=== PATIENT | male | born 1945 | race Caucasian/White ===

== ENCOUNTER → 2020-07-26 18:20 | Outpatient (ROUT) | payer MEDICARE, SELFPAY ==
[2020-07-26 19:14] LABS: Add Manual Diff / Slide Review NO; Basophils Absolute Auto 100 /uL (0-100); Basophils Percent Auto 0.7 % (0-2); Eosinophils Absolute Auto 300 /uL (0-450); Eosinophils Percent Auto 3.4 % (2-4); Hematocrit 49.8 % (41-53); Hemoglobin 16.2 g/dL (13.5-17.5); Lymphocytes Absolute Auto 1900 /uL (1100-4500); Lymphocytes Percent Auto 23.6 % (25-40); Mean Corpuscular HGB Conc 32.6 % (30-36); Mean Corpuscular Volume 95.2 fL (80-100); Monocytes Absolute Auto 900 /uL (0-900); Monocytes Percent Auto 10.9 % (3-14); Neutrophils Absolute Auto 4800 /uL (1500-7000); Neutrophils Percent Auto 61.4 % (50-75); Platelet Count 314 X10^3/uL (150-400); Red Blood Cell Count 5.23 X10^6/uL (4.5-5.9); Red Cell Distribution Width 14.4 % (11.6-14.8); White Blood Cell Count 7.9 X10^3/uL (4.5-11.0)
[2020-07-26 19:16] LABS: HEMOLYSIS < 15 (0-50)
[2020-07-26 19:20] LABS: HEMOLYSIS < 15 (0-50); Iron 153 ug/dL (49-181)
[2020-07-26 19:24] LABS: Alanine Aminotransferase 24 IU/L (<50); Albumin 4.1 g/dL (3.5-5.0); Albumin Globulin Ratio 1.3 (1.0-2.8); Alkaline Phosphatase 62 U/L (38-126); Aspartate Aminotransferase 41 IU/L (17-59); BUN Creatinine Ratio 18.8 (6-22); Bilirubin Total 0.6 mg/dL (0.2-1.3); Blood Urea Nitrogen 12 mg/dL (9-20); Calcium 9.8 mg/dL (8.4-10.2); Carbon Dioxide 32 mmol/L (22-32); Chloride 100 mmol/L (98-107); Cholesterol 157 mg/dL (140-199); Estimated Glomerular Filt Rate > 60.0 mL/min (>60); Globulin 3.1 g/dL (1.7-4.1); Glucose 103 mg/dL (80-110); HDL Cholesterol 75 mg/dL (40-60); LDL Cholesterol Calculated 66 mg/dL (<100); Potassium 4.3 mmol/L (3.4-5.1); Sodium 135 mmol/L (137-145); Total Protein 7.2 g/dL (6.3-8.2); Triglycerides 80 mg/dL (35-150); Uric Acid 4.2 mg/dL (3.5-8.5)
[2020-07-26 19:31] LABS: Percent Iron Saturation 39 % (20-50); Total Iron Binding Capacity 388 ug/dL (261-462); Transferrin 296 mg/dL (206-381)
[2020-07-26 19:57] LABS: Ferritin 29 ng/mL (18-464)
[2020-07-26 20:48] LABS: Folate > 20.0 ng/mL (2.76-20.0); Vitamin B12 > 1000 pg/mL (239-931)
== END ==
PROVIDERS: Visit Provider Internal Medicine
DX: I10 Essential (primary) hypertension (principal); E78.5 Hyperlipidemia, unspecified; M1A.9XX0 Chronic gout, unspecified, without tophus (tophi); Z98.84 Bariatric surgery status
CPT/HCPCS: 80053; 80061; 82607; 82728; 82746; 83540; 83550; 84550; 85025

== ENCOUNTER → 2022-07-18 11:51 | Outpatient (CLI) | payer OTHER, SELFPAY ==
--- NOTE | 2022-07-18 11:56 | DI.RAD.S_ITS ---
PROCEDURE: XR LUMBAR SPINE MIN 4V INDICATIONS: BACK PAIN TECHNIQUE: 5 views of the lumbar spine were acquired, including bilateral oblique views. COMPARISON: None. FINDINGS: Bones: Bilateral pars defects are associated with grade 3 anterior spondylolisthesis. Generalized decreased osseous mineralization present. Grade 1 retrolisthesis at L2-3 noted. Wedge-shaped compression fracture at L1 noted with 40% anterior height loss. Disc space narrowing present at L2-3 L5-S1. Sclerotic facet joints present throughout. Incidental note is made of right hip prosthesis in good position. Soft tissues: Atherosclerotic calcification in the abdominal aorta noted without evidence of aneurysm. IMPRESSION: Grade 3 isthmic spondylolisthesis at L5-S1. Multilevel degenerative disc disease and arthropathy Osteopenic L1 compression fracture, uncertain age. Approved by: Saman Reed M.D. on 07/18/2022 at 16:22
== END ==
PROVIDERS: PCP Internal Medicine; Referring Provider Physical Medicine & Rehabilitation; Visit Provider Physical Medicine & Rehabilitation
DX: M43.17 Spondylolisthesis, lumbosacral region (principal); M51.36 Other intervertebral disc degeneration, lumbar region; M47.816 Spondylosis without myelopathy or radiculopathy, lumbar region; S32.010S Wedge compression fracture of first lumbar vertebra, sequela; M54.9 Dorsalgia, unspecified; I70.0 Atherosclerosis of aorta; Z98.890 Other specified postprocedural states
CPT/HCPCS: 72110; 99214

== ENCOUNTER → 2022-08-26 12:48 | Outpatient (CLI) | payer OTHER, SELFPAY ==
--- NOTE | 2022-08-26 13:07 | DI.MRI.S_ITS ---
PROCEDURE: MR LUMBAR SPINE WO CON INDICATIONS: lumbar stenosis TECHNIQUE: Noncontrast sagittal T1 spin echo and T2 fast echo, sagittal STIR, and T2 fast spin echo through the lumbar spine. In cases with scoliosis, additional coronal T2 fast spin echo may be performed. COMPARISON: None. FINDINGS: Image quality: Excellent. Alignment and Curvature: Grade 1 retrolisthesis L3-4. Grade 3 anterior listhesis present at L4 L5-S1 associated with distracted pars defects Bone Marrow: Marrow is of normal overall signal. No acute vertebral body compression fractures. Chronic degenerative endplate changes noted at L3-4. Chronic compression fractures present at L1, L4 Spinal Cord: Conus medullaris terminates at the L1 level. Visualized cord demonstrates normal signal and size. Paraspinous Soft Tissues: Large right renal cyst. No hydronephrosis T12-L1: Disc space narrowing and retropulsed L1 fracture fragment results in mild central stenosis. No foraminal stenosis L1-L2: Disc height is preserved. No central stenosis. No foraminal stenosis L2-L3: Disc space narrowing with posterior disc osteophyte complex results in moderate central stenosis. Moderate left and severe right foraminal stenosis L3-L4: Disc space is preserved. Mild central stenosis results from disc bulge. Mild bilateral foraminal stenosis L4-L5: Disc space is preserved. Circumferen and disc bulge results in moderate central stenosis. Hypertrophic facet joints results in severe bilateral foraminal stenosis L5-S1: Normal appearance. IMPRESSION: Multilevel degenerative disc disease and arthropathy results in varying degrees of central and foraminal stenosis including moderate central stenosis L2-3 and severe foraminal stenosis L2-3, L4-5, L5-S1 Grade 3 anterior isthmic spondylolisthesis L5-S1 Old compression fractures at L1 and L4 Approved by: Saman Reed M.D. on 08/26/2022 at 16:14
== END ==
PROVIDERS: PCP Internal Medicine; Referring Provider Physical Medicine & Rehabilitation; Visit Provider Physical Medicine & Rehabilitation
DX: M48.062 Spinal stenosis, lumbar region with neurogenic claudication (principal); M43.17 Spondylolisthesis, lumbosacral region; M51.36 Other intervertebral disc degeneration, lumbar region; M47.816 Spondylosis without myelopathy or radiculopathy, lumbar region; M48.56XS Collapsed vertebra, not elsewhere classified, lumbar region, sequela of fracture
CPT/HCPCS: 72148

== ENCOUNTER → 2022-11-18 12:27 | Outpatient (CLI) | payer OTHER, SELFPAY ==
--- NOTE | 2022-11-18 12:30 | DI.CT.S_ITS ---
PROCEDURE: CT LUMBAR SPINE WO CON INDICATIONS: Spinal stenosis, lumbar region TECHNIQUE: Noncontrast 3 mm thick sections acquired from the T12 level to the sacrum. Sagittal and coronal reformats were constructed. For radiation dose reduction, the following was used: automated exposure control. COMPARISON: None. FINDINGS: Image quality: Excellent. Bones: There is normal bony alignment. No acute vertebral body compression fractures. Convexity of the inferior endplate of L1 is seen. No suspicious lytic or blastic bony lesions. No pars defects. T12-L1: No disc bulge. Calcification of the central disc. No foraminal or central canal stenosis. L1-L2: Diffuse disc bulge. Moderate foraminal stenosis bilaterally. The central canal has moderate stenosis. L2-L3: Severe degenerative disc disease with intradiscal gas and severe disc space narrowing. Bilateral facet hypertrophy. Diffuse disc bulge and facet hypertrophy. Severe central canal stenosis. L3-L4: Diffuse disc bulge. Mild bilateral foraminal stenosis. Bilateral facet hypertrophy. Mild central canal stenosis. L4-L5: Diffuse disc bulge. Bilateral facet hypertrophy. Severe right and moderate left foraminal stenosis. Ligamentum flavum hypertrophy. Mild central canal stenosis. L5-S1: Bilateral pars defects with grade 2 anterolisthesis measuring 1.3 cm. Severe bilateral foraminal stenosis. Mild central canal stenosis. Soft tissues: No retroperitoneal masses or hematomas. The aorta has severe atherosclerotic calcifications. The right kidney has a large simple cyst. IMPRESSION: Multilevel severe lumbar spondylosis causing foraminal and central canal stenosis as detailed above. Dictated by: Ej Hall M.D. on 11/18/2022 at 15:50 Approved by: Ej Hall M.D. on 11/18/2022 at 16:03
== END ==
PROVIDERS: PCP Internal Medicine; Referring Provider Orthopaedic Surgery Orthopaedic Surgery of the Spine; Visit Provider Orthopaedic Surgery Orthopaedic Surgery of the Spine
DX: M48.062 Spinal stenosis, lumbar region with neurogenic claudication (principal); M48.07 Spinal stenosis, lumbosacral region; M47.816 Spondylosis without myelopathy or radiculopathy, lumbar region; N28.1 Cyst of kidney, acquired
CPT/HCPCS: 72131

== ENCOUNTER → 2022-11-29 11:45 | Outpatient (CLI) | payer OTHER, SELFPAY ==
[2022-11-29 12:38] LABS: Basophils Absolute Auto 0 /uL (0-100); Basophils Percent Auto 0.5 % (0-2); Eosinophils Absolute Auto 100 /uL (0-450); Eosinophils Percent Auto 1.4 % (2-4); Hematocrit 38.7 % (41-53); Hemoglobin 12.6 g/dL (13.5-17.5); Lymphocytes Absolute Auto 3700 /uL (1100-4500); Lymphocytes Percent Auto 41.4 % (25-40); Mean Corpuscular HGB Conc 32.5 % (30-36); Mean Corpuscular Hemoglobin 26.9 PG (26-34); Mean Corpuscular Volume 82.7 fL (80-100); Monocytes Absolute Auto 900 /uL (0-900); Monocytes Percent Auto 10.4 % (3-14); Neutrophils Absolute Auto 4200 /uL (1500-7000); Neutrophils Percent Auto 46.3 % (50-75); Platelet Count 540 X10^3/uL (150-400); Red Blood Cell Count 4.68 X10^6/uL (4.5-5.9); Red Cell Distribution Width 26.9 % (11.6-14.8)
[2022-11-29 12:40] LABS: Add Manual Diff / Slide Review SLIDE REVIEW
[2022-11-29 13:02] LABS: BUN Creatinine Ratio 18.8 (6-22); Blood Urea Nitrogen 15 mg/dL (9-20); Calcium 8.7 mg/dL (8.4-10.2); Carbon Dioxide 32 mmol/L (22-32); Chloride 96 mmol/L (98-107); Estimated Glomerular Filt Rate > 60 mL/min (>60); Glucose 91 mg/dL (80-110); HEMOLYSIS < 15 (0-50); Potassium 4.2 mmol/L (3.4-5.1); Sodium 133 mmol/L (137-145)
[2022-11-29 13:04] LABS: Acanthocytes 1+; Anisocytosis 1+; Poikilocytosis 1+; Target Cells 1+
[2022-11-30 02:32] LABS: Labcorp Hemoglobin (Hb) A1c 5.4 % (4.8-5.6)
== END ==
PROVIDERS: PCP Internal Medicine; Referring Provider Orthopaedic Surgery Orthopaedic Surgery of the Spine; Visit Provider Orthopaedic Surgery Orthopaedic Surgery of the Spine
DX: Z01.818 Encounter for other preprocedural examination (principal); R73.9 Hyperglycemia, unspecified; Z01.812 Encounter for preprocedural laboratory examination
CPT/HCPCS: 36415; 80048; 83036; 85025; 93005

== ENCOUNTER 2022-12-25 12:28 | Inpatient (IN) | payer OTHER, SELFPAY ==
[2022-12-25] VITALS (13 sets, daily range): BP systolic 91–141; BP diastolic 51–76; PULSE 75–106; RESP 16–18; TEMP 36.2–37.1; O2SAT 97–99; BMI 20.9
[2022-12-25 13:15] LABS: INR 1.1 (0.9-1.3); Prothrombin Time 12.4 SECONDS (10.1-12.7)
[2022-12-25 13:18] LABS: Add Manual Diff / Slide Review NO; Basophils Absolute Auto 0 /uL (0-100); Eosinophils Absolute Auto 0 /uL (0-450); Eosinophils Percent Auto 0.1 % (2-4); Hematocrit 22.8 % (41-53); Hemoglobin 7.6 g/dL (13.5-17.5); Lymphocytes Absolute Auto 1400 /uL (1100-4500); Lymphocytes Percent Auto 10.4 % (25-40); Mean Corpuscular HGB Conc 33.2 % (30-36); Mean Corpuscular Hemoglobin 28.9 PG (26-34); Mean Corpuscular Volume 86.9 fL (80-100); Monocytes Absolute Auto 800 /uL (0-900); Monocytes Percent Auto 6.2 % (3-14); Neutrophils Absolute Auto 11200 /uL (1500-7000); Neutrophils Percent Auto 83.3 % (50-75); Platelet Count 562 X10^3/uL (150-400); Red Blood Cell Count 2.63 X10^6/uL (4.5-5.9); Red Cell Distribution Width 24.6 % (11.6-14.8); White Blood Cell Count 13.4 X10^3/uL (4.5-11.0)
[2022-12-25 13:23] LABS: Alanine Aminotransferase 17 IU/L (<50); Albumin 2.7 g/dL (3.5-5.0); Alkaline Phosphatase 72 U/L (38-126); Aspartate Aminotransferase 29 IU/L (17-59); BUN Creatinine Ratio 43.8 (6-22); Bilirubin Total 0.4 mg/dL (0.2-1.3); Blood Urea Nitrogen 28 mg/dL (9-20); Calcium 7.9 mg/dL (8.4-10.2); Carbon Dioxide 32 mmol/L (22-32); Chloride 98 mmol/L (98-107); Estimated Glomerular Filt Rate > 60 mL/min (>60); Globulin 2.8 g/dL (1.7-4.1); Glucose 125 mg/dL (80-110); HEMOLYSIS < 15 (0-50); Lipase 47 U/L (23-300); Potassium 4.3 mmol/L (3.4-5.1); Sodium 133 mmol/L (137-145); Total Protein 5.5 g/dL (6.3-8.2)
[2022-12-25 13:43] LABS: Anisocytosis 2+; Poikilocytosis 1+
--- NOTE | 2022-12-25 14:34 | PC.NURSE ---
Patient reports history of gastric bypass years ago, loss of appetite over past several weeks. Pt reports I have no muscle tone, reports he is generally weak and unable to get around. Had a doctor appointment last week and was able to get self to/from it. Pt states increased difficulty getting around the house in the past week, unable to stand independently, required tech to assist him to pivot from wheelchair to stretcher.
--- NOTE | 2022-12-25 16:02 | DI.CT.S_ITS ---
PROCEDURE: CT ABDOMEN PELVIS W CON INDICATIONS: GI bleed TECHNIQUE: After the administration of intravenous contrast, axial sections acquired from the lung bases to the pubic symphysis. Coronal and sagittal reformats were performed. For radiation dose reduction, the following was used: automated exposure control, adjustment of mA and/or kV according to patient size. COMPARISON: None. FINDINGS: Image quality: Excellent. Lung bases: Mild bibasilar pulmonary fibrosis. Elevation of left hemidiaphragm.. Heart: Severe coronary artery calcifications. ABDOMEN: Liver: Mild diffuse hepatic steatosis.. Gallbladder: Unremarkable. Given history suggest cholecystectomy. However, a probable gallbladder is noted. Biliary ducts: Unremarkable. Pancreas: Unremarkable. Spleen: Unremarkable. Adrenal Glands: Unremarkable. Kidneys and Ureters: 7.3 cm right renal cyst. Otherwise unremarkable. Normal enhancement without masses. Stomach and Bowel: Remote gastric bypass procedure. There is a loop of what is probably distal jejunum which has diffuse wall thickening and is a narrowed segment. This may potentially be and ischemic segment. This results in small-bowel obstruction, with the immediately proximal jejunum measuring up to 4.9 cm in diameter. Peritoneum: No abnormal intraperitoneal fluid. No free air. Ventral Wall: No hernias. Abdominal Nodes: No retroperitoneal or mesenteric adenopathy by size criteria. Vessels: Aorta and inferior vena cava are normal in size. There is extensive atherosclerotic calcification of the infrarenal abdominal aorta. There may be a hemodynamically significant origin left common iliac artery stenosis. There is a densely calcified origin stenosis of the celiac, which may be severe. 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 PELVIS: Pelvic Organs: Unremarkable. Bladder: Unremarkable. Pelvic Nodes: No enlarged lymph nodes. Miscellaneous: No hernias are seen. Bones: Bilateral L5 pars defects, anterolisthesis of L5 on S1 measuring 11 mm, severe right foraminal narrowing with right foraminal L5 nerve root impingement. Old compressions of L1, L3, and L4. No lytic or blastic bony lesions. Total right hip arthroplasty. Old right rib fractures. IMPRESSION: 1. There is a narrowed segment of jejunum with diffuse wall thickening which likely represents an area of bowel ischemia, of uncertain chronicity. This results in a proximal small bowel obstruction. 2. 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 Findings can potentially result in chronic mesenteric ischemia, a clinical diagnosis, which would be supported by the origin celiac and SMA findings. 3. Severe coronary artery atherosclerotic calcifications. 4. Probable hemodynamically significant proximal left common iliac artery stenosis. 5. Remote gastric bypass. 6. Severe osteoporosis with multiple old compression fractures. 7. L5 pars defects, anterolisthesis of L5 on S1, and severe right foraminal narrowing. Dictated by: Fan Silva M.D. on 12/25/2022 at 16:29 Approved by: Fan Silva M.D. on 12/25/2022 at 16:39
[2022-12-25] MEDS: SODIUM CHLORIDE 0.9% 500 ML 1000 ML IV (16:21)
--- NOTE | 2022-12-25 17:48 | ED.WEAKNESS ---
HPI - Weakness General Chief complaint: Weakness Stated complaint: Weakness/SOB Time Seen by Provider: 12/25/22 15:54 History of Present Illness HPI Narrative: Patient here for generalized weakness and significant weight loss in the past 8 weeks. Patient states he is lost about 30 lb. He is had change in stool shape and size. Now it is like pencil like forearm. He is had black stools intermittently. No dizziness or syncope. Patient has not had a colonoscopy in many years. No prior history of colon cancer. Patient is not on any blood thinners. Denies denies any abdominal pain. No recent illness. No dyspnea. No back pain. Related Data Home Medications Medication Instructions Recorded Confirmed atenolol 100 mg tablet 50 mg PO DAILY 07/18/22 12/25/22 atorvastatin 40 mg tablet 20 mg PO BEDTIME 07/18/22 12/25/22 amlodipine 10 mg tablet 10 mg PO DAILY 12/26/22 12/26/22 Allergies Allergy/AdvReac Type Severity Reaction Status Date / Time No Known Drug Allergies Allergy Unverified 10/21/22 14:41 Review of Systems Review of Systems Narrative: GENERAL: negative chills, positive fatigue, malaise, negative fever, sweats. HEENT: negative sinus pain, ear pain, sore throat RESPIRATORY: negative dyspnea, cough CARDIOVASCULAR: negative chest pain, palpitations GASTROINTESTINAL: negative nausea, vomiting, abdominal pain, positive black stools : negative dysuria, frequency, hematuria MUSCULOSKELETAL: negative muscle or bony pain SKIN: negative rash, skin lesions NEUROLOGIC: negative weakness, numbness ROS Unobtainable: All systems reviewed & are unremarkable except as noted in HPI and below Patient History Medical History CAD (coronary artery disease) Closed L1 vertebral fracture Closed L4 vertebral fracture Head trauma (~1975) History of viral encephalitis HLD (hyperlipidemia) HTN (hypertension) Hx of seizure disorder Hx SBO Idiopathic gout Lumbar stenosis with neurogenic claudication Lumbar vertebral fracture Memory loss Pulmonary fibrosis Sleep apnea Spondylolisthesis at L3-L4 level Spondylolisthesis at L5-S1 level Spondylolisthesis, grade 3 Tortuous aorta Surgical History H/O knee surgery (2003) H/O shoulder surgery History of hip surgery (2007) Hx of bariatric surgery (~2008) Hx of heart artery stent (2015) Family History Father Heart attack Mother Depression Sister Depression Social History household members: none Smoking Status: Former smoker alcohol intake: former Smoking Status: Former smoker Substance Use Type: marijuana Exam Narrative Exam Narrative: GENERAL: in no distress, not toxic not dyspneic HEAD: Normocephalic. EYES: Pupils equal round ENT: Mucous membranes moist. NECK: Trachea midline. CARDIOVASCULAR: Regular rate and rhythm without murmurs RESPIRATORY: Clear to auscultation. Breath sounds equal bilaterally. No wheezes, rales, or rhonchi. GASTROINTESTINAL: Abdomen soft, non-tender, abdomen is soft flat nontender no peritoneal signs no pain out of proportion to exam. EXTREMITIES: No gross deformities. BACK: No flank tenderness. NEURO: AOx4. SKIN: Warm and dry PSYCH: Not anxious, is cooperative Initial Vital Signs Initial Vital Signs: Vital Signs Temperature 97.2 F L 12/25/22 12:35 Pulse Rate 106 H 12/25/22 12:35 Respiratory Rate 16 12/25/22 12:35 Blood Pressure 103/56 L 12/25/22 12:35 Pulse Oximetry 97 12/25/22 12:35 Oxygen Delivery Method Room Air 12/25/22 12:35 Course Orders Ordered: Discontinued Medications Acetaminophen (Acetaminophen 325 Mg Tablet) 650 mg PO Q6H PRN PRN Reason: Fever/Mild Pain (1-3) Diltiazem HCl (Diltiazem 5 Mg/Ml Sdv) 10 mg IV NOW ONE Stop: 12/26/22 09:15 Last Admin: 12/26/22 11:38 Dose: Not Given Documented By: CEZAR Diltiazem HCl (Diltiazem 5 Mg/Ml Sdv) 10 mg IV NOW ONE Stop: 12/26/22 12:28 Last Admin: 12/26/22 12:44 Dose: 10 mg Documented By: CEZAR Sodium Chloride (Normal Saline 0.9%) 500 mls @ 1,000 mls/hr IV BOLUS ONE Stop: 12/25/22 16:31 Last Infusion: 12/25/22 17:11 Dose: 0 mls/hr Documented By: Admin: 12/25/22 16:21 Dose: 1,000 mls/hr Documented By: AT Ondansetron HCl (Ondansetron 4 Mg/2 Ml Inj) 4 mg IV NOW PRN PRN Reason: Nausea And Vomiting Ondansetron HCl (Ondansetron 4 Mg/2 Ml Inj) 4 mg IV Q8HR PRN PRN Reason: Nausea And Vomiting Pantoprazole Sodium (Pantoprazole 40 Mg Vial) 40 mg IV BID [facility] Last Admin: 12/25/22 20:26 Dose: 40 mg Documented By: MERCEDEZ Pantoprazole Sodium (Pantoprazole 40 Mg Vial) 40 mg IV BID [facility] Pantoprazole Sodium (Pantoprazole 40 Mg Vial) 40 mg IV BID [facility] Last Admin: 12/26/22 10:33 Dose: 40 mg Documented By: CEZAR Vital Signs Vital signs: Vital Signs - 8 hr 12/25/22 12:35 12/25/22 14:31 12/25/22 15:00 Temperature 97.2 F L Pulse Rate 106 H 80 78 Respiratory Rate 16 18 18 Blood Pressure 103/56 L 141/76 H 122/65 Pulse Oximetry 97 99 99 Oxygen Delivery Method Room Air Room Air Room Air 12/25/22 15:30 12/25/22 16:00 12/25/22 16:30 Temperature Pulse Rate 90 80 78 Respiratory Rate 18 Blood Pressure 128/69 130/69 124/68 Pulse Oximetry 99 98 98 Oxygen Delivery Method Room Air Room Air Room Air 12/25/22 17:00 Temperature Pulse Rate 75 Respiratory Rate Blood Pressure 130/65 Pulse Oximetry 98 Oxygen Delivery Method Room Air MDM - Weakness Lab Data 12/26/22 15:05 12/26/22 06:55 Labs: Lab Results 12/25/22 12/25/22 12/25/22 Range/Units 12:55 12:55 12:55 WBC 13.4 H (4.5-11.0) X10^3/uL RBC 2.63 L (4.5-5.9) X10^6/uL Hgb 7.6 L (13.5-17.5) g/dL Hct 22.8 L (41-53) % MCV 86.9 (80-100) fL MCH 28.9 (26-34) PG MCHC 33.2 (30-36) % RDW 24.6 H (11.6-14.8) % Plt Count 562 H (150-400) X10^3/uL Neut % (Auto) 83.3 H (50-75) % Lymph % (Auto) 10.4 L (25-40) % [place] % (Auto) 6.2 (3-14) % Eos % (Auto) 0.1 L (2-4) % Baso % (Auto) 0.0 (0-2) % Neut # (Auto) 54452 H (2067-1321) /uL Lymph # (Auto) 1400 (2511-5688) /uL [place] # (Auto) 800 (0-900) /uL Eos # (Auto) 0 (0-450) /uL Baso # (Auto) 0 (0-100) /uL RBC Morphology See below Poikilocytosis 1+ H Anisocytosis 2+ H PT 12.4 (10.1-12.7) SECONDS INR 1.1 (0.9-1.3) Sodium 133 L (137-145) mmol/L Potassium 4.3 (3.4-5.1) mmol/L Chloride 98 (98-107) mmol/L Carbon Dioxide 32 (22-32) mmol/L BUN 28 H (9-20) mg/dL Creatinine 0.64 L (0.66-1.25) mg/dL Estimated GFR > 60 (>60) mL/min BUN/Creatinine Ratio 43.8 H (6-22) Glucose 125 H (80-110) mg/dL Calcium 7.9 L (8.4-10.2) mg/dL Total Bilirubin 0.4 (0.2-1.3) mg/dL AST 29 (17-59) IU/L ALT 17 (<50) IU/L Alkaline Phosphatase 72 (38-126) U/L Total Protein 5.5 L (6.3-8.2) g/dL Albumin 2.7 L (3.5-5.0) g/dL Globulin 2.8 (1.7-4.1) g/dL Albumin/Globulin Ratio 1.0 (1.0-2.8) Lipase 47 (23-300) U/L 25-OH Vitamin D Total (30.0-100.0) ng/mL Ur Bilirubin Confirm (Negative) Blood Type Antibody Screen Crossmatch 12/25/22 12/25/22 12/25/22 Range/Units 12:55 16:36 17:07 WBC (4.5-11.0) X10^3/uL RBC (4.5-5.9) X10^6/uL Hgb (13.5-17.5) g/dL Hct (41-53) % MCV (80-100) fL MCH (26-34) PG MCHC (30-36) % RDW (11.6-14.8) % Plt Count (150-400) X10^3/uL Neut % (Auto) (50-75) % Lymph % (Auto) (25-40) % [place] % (Auto) (3-14) % Eos % (Auto) (2-4) % Baso % (Auto) (0-2) % Neut # (Auto) (0713-2818) /uL Lymph # (Auto) (8489-6087) /uL [place] # (Auto) (0-900) /uL Eos # (Auto) (0-450) /uL Baso # (Auto) (0-100) /uL RBC Morphology Poikilocytosis Anisocytosis PT (10.1-12.7) SECONDS INR (0.9-1.3) Sodium (137-145) mmol/L Potassium (3.4-5.1) mmol/L Chloride (98-107) mmol/L Carbon Dioxide (22-32) mmol/L BUN (9-20) mg/dL Creatinine (0.66-1.25) mg/dL Estimated GFR (>60) mL/min BUN/Creatinine Ratio (6-22) Glucose (80-110) mg/dL Calcium (8.4-10.2) mg/dL Total Bilirubin (0.2-1.3) mg/dL AST (17-59) IU/L ALT (<50) IU/L Alkaline Phosphatase (38-126) U/L Total Protein (6.3-8.2) g/dL Albumin (3.5-5.0) g/dL Globulin (1.7-4.1) g/dL Albumin/Globulin Ratio (1.0-2.8) Lipase (23-300) U/L 25-OH Vitamin D Total 65.3 (30.0-100.0) ng/mL Ur Bilirubin Confirm Negative (Negative) Blood Type O Positive Antibody Screen Negative Crossmatch See Detail Urine Dip Bedside Urine Glucose Negative Bedside Urine Bilirubin ++ 2 Bedside Urine Ketone +/- 5 Urine Specific [place] 1.010 Bedside Urine Occult Blood - Negative Bedside Urine pH 6.0 Bedside Urine Protein - Negative Bedside Urine Urobilinogen - Negative Bedside Urine Nitrite - Negative Bedside Urine Leukocytes - Negative Esterase Imaging Data CT scan - abdomen/pelvis: Radiologist Impression: [address] [address] [address] Scan Report Signed Patient: Hang Santos MR#: [id number] : 1945 Acct:[id number] Age/Sex: 77 / M Date of Service: 12/25/22 Loc: ED Accession Number: [id number] ?? Procedure: CT abdomen pelvis w con Ordering Provider: Jordin Santacruz MD PROCEDURE:? CT ABDOMEN PELVIS W CON ? INDICATIONS:? GI bleed ? TECHNIQUE:? After the administration of intravenous contrast, axial sections acquired from the lung bases to the pubic symphysis.? Coronal and sagittal reformats were performed.? For radiation dose reduction, the following was used:? automated exposure control, adjustment of mA and/or kV according to patient size.? ? COMPARISON:? None. ? FINDINGS:? Image quality:? Excellent.? ? Lung bases:? Mild bibasilar pulmonary fibrosis.? Elevation of left hemidiaphragm.. Heart:? Severe coronary artery calcifications. ? ABDOMEN: Liver:? Mild diffuse hepatic steatosis..? ? Gallbladder:? Unremarkable.? Given history suggest cholecystectomy.? However, a probable gallbladder is noted. ? Biliary ducts:? Unremarkable.? ? Pancreas:? Unremarkable.? ? Spleen:? Unremarkable.? ? Adrenal Glands:? Unremarkable.? ? Kidneys and Ureters:? 7.3 cm right renal cyst.? Otherwise unremarkable.? Normal enhancement without masses. ? Stomach and Bowel:? Remote gastric bypass procedure.? There is a loop of what is probably distal jejunum which has diffuse wall thickening and is a narrowed segment.? This may potentially be and ischemic segment.? This results in small-bowel obstruction, with the immediately proximal jejunum measuring up to 4.9 cm in diameter.? Peritoneum:? No abnormal intraperitoneal fluid.? No free air.? ? Ventral Wall: ? No hernias.? Abdominal Nodes:? No retroperitoneal or mesenteric adenopathy by size criteria.? Vessels:? Aorta and inferior vena cava are normal in size.? There is extensive atherosclerotic calcification of the infrarenal abdominal aorta.? There may be a hemodynamically significant origin left common iliac artery stenosis.? 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 ? PELVIS: Pelvic Organs:? Unremarkable.? ? Bladder:? Unremarkable.? ? Pelvic Nodes: No enlarged lymph nodes.? Miscellaneous: No hernias are seen. ? ? ? Bones:? Bilateral L5 pars defects, anterolisthesis of L5 on S1 measuring 11 mm, severe right foraminal narrowing with right foraminal L5 nerve root impingement.? Old compressions of L1, L3, and L4.? No lytic or blastic bony lesions.? Total right hip arthroplasty.? Old right rib fractures. ? ? IMPRESSION:? ? 1. There is a narrowed segment of jejunum with diffuse wall thickening which likely represents an area of bowel ischemia, of uncertain chronicity.? This results in a proximal small bowel obstruction. ? 2. 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 Findings can potentially result in chronic mesenteric ischemia, a clinical diagnosis, which would be supported by the origin celiac and SMA findings. ? 3. Severe coronary artery atherosclerotic calcifications. ? 4. Probable hemodynamically significant proximal left common iliac artery stenosis. ? 5. Remote gastric bypass. ? 6. Severe osteoporosis with multiple old compression fractures. ? 7. L5 pars defects, anterolisthesis of L5 on S1, and severe right foraminal narrowing. ? ? Dictated by: Fan Silva M.D. on 12/25/2022 at 16:29 ? ? Approved by: Fan Silva M.D. on 12/25/2022 at 16:39 ? MDM Narrative Medical decision making narrative: After history and exam CBC CMP type and screen EKG CT abdomen pelvis normal saline MDM CC: Weakness Complicating co-morbidities: History of gastric bypass Data collected from: Patient Medical records reviewed: No recent visits for this complaint Differential considered: Includes but not limited to bowel obstruction colonic neoplasm diverticulosis gastric bleed Exam documented above, pertinent findings include: Abdomen is soft flat nontender no peritoneal signs no pain out of proportion to exam. Likely not ischemic bowel Lab Test results independently reviewed as above. Pertinent findings: WBC 13.4 hemoglobin 7.6 significant change from 1 month ago of 12.6, platelets 562 hematocrit 22.8 INR 1.1 sodium 133 BUN 28 creatinine 0.64 GFR greater than 60 glucose 125 AST 29 ALT 17 Independently reviewed EKG sinus rhythm rate [address] elevation or depression Imaging studies independently reviewed: CT abdomen pelvis possible bowel ischemia, possible small-bowel obstruction. Possibly chronic occluded SMA. Consultations: 5:[address] Niño, general surgeon results and CT imaging, she will review the CT imaging before ordering bowel prepping. She would like patient admitted to hospitalist. 5:[address] Hanson, hospitalist he will see patient for admission. Treatments: Normal saline Re-evaluations: Reviewed results patient and he agrees for admission. Vital signs are stable Discussion: Appropriate for admission. Patient will need colonoscopy likely. Patient has had significant weight loss in the last 2 months. Also stool form changes. Has not had any colonoscopy recently. I did review CT scan imaging with Dr. Niño, at this time findings are likely chronic. At this time clinically not bowel obstruction. She would like patient admitted hospitalist. She will follow as consult. I did review with hospitalist and he agrees for admission. Patient has had significant drop in hemoglobin however not requiring transfusion at this time Diagnosis: GI bleed Discharge Plan Departure Patient Disposition: Admitted as Observation Clinical Impression: Acute GI bleeding Admit Date/Time: 12/25/22 17:49 Admit Provider: Jeffery Hanson
[2022-12-25 17:57] LABS: Ictotest Urine Negative (Negative)
--- NOTE | 2022-12-25 18:26 | PC.NURSE ---
Day shift: Pt in room from ED at approx 1815. He is A&Ox4. Asking about his planned back surgery on Friday the of this month. He denies any pain or nausea. Dr Hanson aware Pt in room. Oriented to room and call light. Call light in reach. Clear liquid diet and tolerating ice water at this time. Pt is very weak but was able to pivot transfer into bed. BP 95/65. RA 97%. Denies any chest pain. Other VS unremarkable.
--- NOTE | 2022-12-25 19:45 | P.HP_ITS ---
History of Present Illness History of Present Illness Date Patient Seen: 12/25/22 Time Patient Seen: 19:46 Date of Onset of Symptoms: 12/12/22 Chief complaint: Weakness/SOB Narrative: The patient is a 77-year-old male who presents with a 10 day history of progressive weakness. He also describes dark stools which has been ongoing for the last several weeks. He notes a history of black stools 1 other time several months ago. Patient has a history of a gastric bypass which was a Melissa-en-Y ago at [facility]. He notes that he was 305 lb and then dropped to 160 lb after his bypass. He remained stable at 160 lb until about 2 months ago. He then had rapid drop of weight from 160 to 120 lb. He describes anorexia as well as a change in the color of his stools from yellow to green and now dark. The patient also has intermittent gurgling and discomfort in his abdomen but not necessarily after eating. He is eating less. The patient notes a long history of intermittent diarrhea. In the emergency department he is found to have evidence of a blood loss anemia from gastrointestinal bleeding. He denies history of ulcer or use of nonsteroidals. 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 The patient has a distant history of smoking but quit over 20 years ago. He denies vascular disease but does note a history of pulmonary fibrosis. He denies recent fevers, or chills. He also denies recent change in urination. He also notes that he has an upcoming lumbar fusion that is scheduled. FORMERLY [facility], [facility] Medical History CAD (coronary artery disease) Closed L1 vertebral fracture Closed L4 vertebral fracture Head trauma (~1975) History of viral encephalitis HLD (hyperlipidemia) HTN (hypertension) Hx of seizure disorder Hx SBO Idiopathic gout Lumbar stenosis with neurogenic claudication Lumbar vertebral fracture Memory loss Pulmonary fibrosis Sleep apnea Spondylolisthesis at L3-L4 level Spondylolisthesis at L5-S1 level Spondylolisthesis, grade 3 Tortuous aorta Surgical History H/O knee surgery (2003) H/O shoulder surgery History of hip surgery (2007) Hx of bariatric surgery (~2007) Hx of heart artery stent (2014) Family History Father Heart attack Mother Depression Sister Depression Social History household members: none Smoking Status: Former smoker alcohol intake: former Comment: He lives alone in [place]. He has a dog. He all or smoke cigarettes. He uses marijuana occasionally. Meds Home Medications and Allergies Home Medications Medication Instructions Recorded Confirmed Type atenolol 100 mg tablet 50 mg PO DAILY 07/18/22 12/25/22 History atorvastatin 40 mg tablet 20 mg PO BEDTIME 07/18/22 12/25/22 History celecoxib 200 mg capsule 200 mg PO DAILY 12/25/22 12/25/22 History nystatin 100,000 unit/mL oral 5 ml PO Q6HR 12/25/22 12/25/22 History suspension Allergies Allergy/AdvReac Type Severity Reaction Status Date / Time No Known Drug Allergies Allergy Unverified 10/21/22 14:41 Review of Systems Review of Systems Narrative: He denies fevers, chills, hematemesis. He denies any change in his mental status. He also denies any abdominal distention. No hematuria, or dysuria. Bright red blood per rectum he has lost lot of weight over the last several months, approximately 40 lb. No night sweats. He denies postprandial abdominal pain is a pattern. All else reviewed and otherwise negative. Exam Vital Signs (past 8 hours): - 12/25/22 12:35 12/25/22 14:31 12/25/22 15:00 Temperature 97.2 F L Pulse Rate 106 H 80 78 Respiratory Rate 16 18 18 Blood Pressure 103/56 L 141/76 H 122/65 Pulse Oximetry 97 99 99 Oxygen Delivery Method Room Air Room Air Room Air Oxygen Flow Rate 12/25/22 15:30 12/25/22 16:00 12/25/22 16:30 Temperature Pulse Rate 90 80 78 Respiratory Rate 18 Blood Pressure 128/69 130/69 124/68 Pulse Oximetry 99 98 98 Oxygen Delivery Method Room Air Room Air Room Air Oxygen Flow Rate 12/25/22 18:00 12/25/22 17:00 12/25/22 18:31 Temperature Pulse Rate 75 75 Respiratory Rate 16 Blood Pressure 132/67 130/65 Pulse Oximetry 99 98 97 Oxygen Delivery Method Room Air Room Air Room Air Oxygen Flow Rate 12/25/22 18:38 Temperature 98.4 F Pulse Rate 88 Respiratory Rate 18 Blood Pressure 93/65 Pulse Oximetry 97 Oxygen Delivery Method Oxygen Flow Rate 0 Oxygen Delivery Method Room Air Oxygen Flow Rate 0 Narrative Exam Narrative: Is alert and oriented, he appears chronically ill and cachectic. He is in no distress. His head is atraumatic. The patient normal nose and mouth. Eyes are notable for symmetric pupils, EOMI and and anicteric The neck is supple, no adenopathy normal range of motion. The lungs are clear, normal effort and no wheezing is appreciated. The heart is regular, without murmur or gallop or rub. The abdomen is flat and scaphoid. There is no organomegaly. No masses are appreciated. No organomegaly. The extremities are free of edema. He has good peripheral pulses. The skin is free of rash, lesions or ecchymosis. He moves arms and legs spontaneously without difficulty. He has normal speech, and cranial nerves appear to be grossly intact. There is no facial droop. He has normal affect, and judgment. Objective ECG Impression: NSR Rate: 66 IN [address] changes Imaging CT scan - abdomen: Radiologist's impression: [place] [address] CT Scan Report Signed Patient: Hang Santos MR#: [id number] : 1945 Acct:[id number] Age/Sex: 77 / M Date of Service: 12/25/22 Loc: ED Accession Number: [id number] ?? Procedure: CT abdomen pelvis w con Ordering Provider: Jordin Santacruz MD PROCEDURE:? CT ABDOMEN PELVIS W CON ? INDICATIONS:? GI bleed ? TECHNIQUE:? After the administration of intravenous contrast, axial sections acquired from the lung bases to the pubic symphysis.? Coronal and sagittal reformats were performed.? For radiation dose reduction, the following was used:? automated exposure control, adjustment of mA and/or kV according to patient size.? ? COMPARISON:? None. ? FINDINGS:? Image quality:? Excellent.? ? Lung bases:? Mild bibasilar pulmonary fibrosis.? Elevation of left hemidiaphragm.. Heart:? Severe coronary artery calcifications. ? ABDOMEN: Liver:? Mild diffuse hepatic steatosis..? ? Gallbladder:? Unremarkable.? Given history suggest cholecystectomy.? However, a probable gallbladder is noted. ? Biliary ducts:? Unremarkable.? ? Pancreas:? Unremarkable.? ? Spleen:? Unremarkable.? ? Adrenal Glands:? Unremarkable.? ? Kidneys and Ureters:? 7.3 cm right renal cyst.? Otherwise unremarkable.? Normal enhancement without masses. ? Stomach and Bowel:? Remote gastric bypass procedure.? There is a loop of what is probably distal jejunum which has diffuse wall thickening and is a narrowed segment.? This may potentially be and ischemic segment.? This results in small-bowel obstruction, with the immediately proximal jejunum measuring up to 4.9 cm in diameter.? Peritoneum:? No abnormal intraperitoneal fluid.? No free air.? ? Ventral Wall: ? No hernias.? Abdominal Nodes:? No retroperitoneal or mesenteric adenopathy by size criteria.? Vessels:? Aorta and inferior vena cava are normal in size.? There is extensive atherosclerotic calcification of the infrarenal abdominal aorta.? There may be a hemodynamically significant origin left common iliac artery stenosis.? 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 ? PELVIS: Pelvic Organs:? Unremarkable.? ? Bladder:? Unremarkable.? ? Pelvic Nodes: No enlarged lymph nodes.? Miscellaneous: No hernias are seen. ? ? ? Bones:? Bilateral L5 pars defects, anterolisthesis of L5 on S1 measuring 11 mm, severe right foraminal narrowing with right foraminal L5 nerve root impingement.? Old compressions of L1, L3, and L4.? No lytic or blastic bony lesions.? Total right hip arthroplasty.? Old right rib fractures. ? ? IMPRESSION:? ? 1. There is a narrowed segment of jejunum with diffuse wall thickening which likely represents an area of bowel ischemia, of uncertain chronicity.? This results in a proximal small bowel obstruction. ? 2. 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 Findings can potentially result in chronic mesenteric ischemia, a clinical diagnosis, which would be supported by the origin celiac and SMA findings. ? 3. Severe coronary artery atherosclerotic calcifications. ? 4. Probable hemodynamically significant proximal left common iliac artery stenosis. ? 5. Remote gastric bypass. ? 6. Severe osteoporosis with multiple old compression fractures. ? 7. L5 pars defects, anterolisthesis of L5 on S1, and severe right foraminal narrowing. ? Labs 12/25/22 12:55 12/25/22 12:55 Labs: Laboratory Results - last 24 hr 12/25/22 12/25/22 12/25/22 12:55 12:55 12:55 WBC 13.4 H RBC 2.63 L Hgb 7.6 L Hct 22.8 L MCV 86.9 MCH 28.9 MCHC 33.2 RDW 24.6 H Plt Count 562 H Neut % (Auto) 83.3 H Lymph % (Auto) 10.4 L [place] % (Auto) 6.2 Eos % (Auto) 0.1 L Baso % (Auto) 0.0 Neut # (Auto) 65997 H Lymph # (Auto) 1400 [place] # (Auto) 800 Eos # (Auto) 0 Baso # (Auto) 0 RBC Morphology See below Poikilocytosis 1+ H Anisocytosis 2+ H PT 12.4 INR 1.1 Sodium 133 L Potassium 4.3 Chloride 98 Carbon Dioxide 32 BUN 28 H Creatinine 0.64 L Estimated GFR > 60 BUN/Creatinine Ratio 43.8 H Glucose 125 H Calcium 7.9 L Total Bilirubin 0.4 AST 29 ALT 17 Alkaline Phosphatase 72 Total Protein 5.5 L Albumin 2.7 L Globulin 2.8 Albumin/Globulin Ratio 1.0 Lipase 47 Ur Bilirubin Confirm Blood Type Antibody Screen 12/25/22 12/25/22 16:36 17:07 WBC RBC Hgb Hct MCV MCH MCHC RDW Plt Count Neut % (Auto) Lymph % (Auto) [place] % (Auto) Eos % (Auto) Baso % (Auto) Neut # (Auto) Lymph # (Auto) [place] # (Auto) Eos # (Auto) Baso # (Auto) RBC Morphology Poikilocytosis Anisocytosis PT INR Sodium Potassium Chloride Carbon Dioxide BUN Creatinine Estimated GFR BUN/Creatinine Ratio Glucose Calcium Total Bilirubin AST ALT Alkaline Phosphatase Total Protein Albumin Globulin Albumin/Globulin Ratio Lipase Ur Bilirubin Confirm Negative Blood Type O Positive Antibody Screen Negative Assessment & Plan Assessment & Plan narrative: 1. Melena consistent with upper GI bleeding, present on admission and active. -trend hemoglobin and transfuse for threshold less than 7.0. Case discussed with General surgery, Protonix IV q.12 hours. 2. Acute blood loss anemia, present on admission and active. This appears to be subacute by history, we will trend hemoglobin and support as above. 3. Abdominal discomfort and severe weight loss, present on admission and active. This appears to be secondary to vascular insufficiency as outlined below. 4. 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 This appears to be chronic and causing some degree of bowel edema and probable proximal bowel obstruction. They will be nothing by mouth and discussed case with surgery tomorrow. Likely will pursue a duplex ultrasound versus CT angiogram. Ultimately, the patient will likely require transfer for vascular evaluation. 5. Evidence of coronary artery calcifications, present on admission and active. Follow clinically. 6. Probable left common iliac artery stenosis by CT scan, since admission and likely active. Follow clinically, no acute workup. 7. Severe osteoporosis by CT scan with multiple compression fractures. Present on admission and active. The patient likely had malabsorption related to his bypass. We will evaluate vitamin-D levels. 8. L5 pars defects and anterolisthesis of L5 on S1 with severe right foraminal narrowing. Present on admission and active. The patient is in touch with spine surgery, although this seems likely to be postponed given all the other findings tonight. The patient will be NPO pending further review. Patient is full resuscitation, the this question from his report tonight. Time Spent With Patient Time with patient: 30 to 49 minutes with 50% spent counseling/coordinating care
[2022-12-25] MEDS: PANTOPRAZOLE 40 MG VIAL IV (20:26)
[2022-12-26] VITALS (16 sets, daily range): BP systolic 89–116; BP diastolic 40–67; PULSE 84–163; RESP 14–147; TEMP 36.6–37.4; O2SAT 96–99
[2022-12-26 00:04] LABS: Vitamin D 25 Hydroxy (D3) 65.3 ng/mL (30.0-100.0)
[2022-12-26 07:34] LABS: Mean Corpuscular HGB Conc 33.8 % (30-36); Mean Corpuscular Hemoglobin 29.4 PG (26-34); Mean Corpuscular Volume 86.8 fL (80-100); Platelet Count 456 X10^3/uL (150-400); Red Cell Distribution Width 24.5 % (11.6-14.8); White Blood Cell Count 8.8 X10^3/uL (4.5-11.0)
[2022-12-26 07:51] LABS: Add Manual Diff / Slide Review YES
[2022-12-26 07:54] LABS: Alanine Aminotransferase 14 IU/L (<50); Albumin 2.3 g/dL (3.5-5.0); Albumin Globulin Ratio 0.9 (1.0-2.8); Alkaline Phosphatase 58 U/L (38-126); Aspartate Aminotransferase 25 IU/L (17-59); BUN Creatinine Ratio 51.7 (6-22); Bilirubin Total 0.3 mg/dL (0.2-1.3); Blood Urea Nitrogen 31 mg/dL (9-20); Calcium 7.7 mg/dL (8.4-10.2); Carbon Dioxide 30 mmol/L (22-32); Chloride 101 mmol/L (98-107); Estimated Glomerular Filt Rate > 60 mL/min (>60); Globulin 2.5 g/dL (1.7-4.1); Glucose 84 mg/dL (80-110); HEMOLYSIS < 15 (0-50); Potassium 3.8 mmol/L (3.4-5.1); Sodium 134 mmol/L (137-145); Total Protein 4.8 g/dL (6.3-8.2)
[2022-12-26 07:57] LABS: Hematocrit 17.4 % (41-53); Hemoglobin 5.9 g/dL (13.5-17.5)
[2022-12-26 08:03] LABS: Anisocytosis 2+; Neutrophils Absolute Manual 5192 /uL (3000-5900); Total Cells Counted 100
--- NOTE | 2022-12-26 08:14 | PC.NURSE ---
Day shift: Dr Hanson made aware of bruit sounds at Pt's ABD area at approx [phone].
[2022-12-26] MEDS: PANTOPRAZOLE 40 MG VIAL IV (10:33)
[2022-12-26] MEDS: dilTIAZem 5 MG/ML SDV 10 MG IV (12:44)
--- NOTE | 2022-12-26 14:10 | CM.DANOTE ---
Initial DCP Assessment Note Pt is a 77 yo male, resident of [place], presents w/suspected GI bleed and acute blood loss anemia. 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 This appears to be chronic and causing some degree of bowel edema and probable proximal bowel obstruction. Transfer to higher level of care being attempted for vascular evaluation PCP: Erendira March Payer: [facility] Reviewed chart, pt discussed w/nursing. No needs at this time from CM team as patient is awaiting transfer to higher level of care Will plan to assess if patient remains at for care and for discharge NAKUL Da Silva Discharge Planning/Care Management CM Discharge Assessment Start: 12/26/22 14:04 Freq: Status: Active Protocol: Document 12/26/22 14:04 FAHEEM (Rec: 12/26/22 14:10 FAHEEM [id number]) Discharge Planning Assessment Assigned Sheep Sorter NAKUL Willis DPOA/Assigned Designee Name chapin Collins Contact Information [phone] Advance Directives? No History Provided By Patient,Medical Record Prior Living Arrangements House Household Members none Type of transporation used prior to Drives own vehicle admit Independent with ADL's Yes Is patient alert and oriented? Yes Comment transfer for vascular evaluation Discharge Plan Transfer to Higher Level of Care Referrals Initiated None needed
--- NOTE | 2022-12-26 14:41 | PM.DS.1 ---
History of Present Illness History of Present Illness Date Patient Seen: 12/26/22 Time Patient Seen: 14:41 Chief complaint: Weakness/SOB Narrative: Per admitting provider, The patient is a 77-year-old male who presents with a 10 day history of progressive weakness. He also describes dark stools which has been ongoing for the last several weeks. He notes a history of black stools 1 other time several months ago. Patient has a history of a gastric bypass which was a Baldemar-en-Y ago at [facility]. He notes that he was 305 lb and then dropped to 160 lb after his bypass. He remained stable at 160 lb until about 2 months ago. He then had rapid drop of weight from 160 to 120 lb. He describes anorexia as well as a change in the color of his stools from yellow to green and now dark. The patient also has intermittent gurgling and discomfort in his abdomen but not necessarily after eating. He is eating less. The patient notes a long history of intermittent diarrhea. In the emergency department he is found to have evidence of a blood loss anemia from gastrointestinal bleeding. He denies history of ulcer or use of nonsteroidals. 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 The patient has a distant history of smoking but quit over 20 years ago. He denies vascular disease but does note a history of pulmonary fibrosis. He denies recent fevers, or chills. He also denies recent change in urination. He also notes that he has an upcoming lumbar fusion that is scheduled. Discharge Providers Provider Date of admission: 12/25/22 17:49 Discharge Date: 12/26/22 Primary care physician: Erendira March MD Consults: 12/25/22 18:15 Consult to General Surgery Routine Comment: Consulting Provider: Dhara Niño Reason for consultation: melena, CT findings Has provider been notified: Yes 12/25/22 18:51 Consult to Dietitian, Adult Routine Comment: Reason For Exam: sever weight loose in last 6 months Discharge provider: Jeffery Hanson DO Summary Hospital Course Discharge Diagnosis: 1. Acute blood loss anemia secondary to upper GI bleeding and ischemic bowel 2. Acute small bowel obstruction secondary to ischemic bowel. 3. 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 This appears to be chronic and causing some degree of bowel edema and probable proximal bowel obstruction. 4. history of CAD 5. Atrial fibrillation with RVR, new diagnosis 6. Severe osteoporosis by CT scan with multiple compression fractures.? Present on admission and active.? The patient likely had malabsorption related to his bypass.? We will evaluate vitamin-D levels. 7. L5 pars defects and anterolisthesis of L5 on S1 with severe right foraminal narrowing.? Present on admission and active.? The patient is in touch with spine surgery, although this seems likely to be postponed given all the other findings tonight. Hospital Course: 77 M with PMH of remote CAD, baldemar-en-Y gastric bypass admitted with profound weakness, weight loss, intermittent abdominal pain, and melena. Initial CT showed jejunal thickening and small bowel obstruction along with severe calcification and appearance of stenosis of the SMA and celiac artery origins concerning for mesenteric ischemia. Clinically he had no nausea or significant pain. He was continued on an NPO diet pending general surgery consultation, whom recommended against endoscopy at this time given the likely ischemic nature and given the location of the thickening on imaging. Given his possible obstruction and ongoing anemia, patient was not given a diet. Surgery did recommend transfer for vascular surgery consultation. Initially hg was 7.6 on presentation, last month on 11/29 it was 12. It downtrended to hg of 5.9 this morning. Patient was ordered for 2U PRBC, and shortly after lab values returned he developed afib with RVR with rates as high as the 170s. He was asymptomatic, but had borderline BP with lowest of 90/40. His rate improved with single dose of IV diltiazem, was not ordered for a diltiazem infusion. Echocariogram was ordered but unable to be performed prior to patient's transfer, though afib is suspected to be in the setting of his anemia. Hg improved to 9.2 after completion of his 2U PRBC. Discussed with vascular surgery at [facility] whom agreed that patient may need bypass, but requested admission to hospitalist service for optimization given afib with RVR and anemia. Patient was accepted for transfer by [facility] hospitalist. Hospitalist requested protonix infusion, however this is unavailable from the [facility]. Time Spent with Patient Time spent: Greater than 30 minutes Exam Vital Signs (past 8 hours): - 12/26/22 08:29 12/26/22 08:40 12/26/22 08:57 Temperature 99.1 F 97.9 F 98.6 F Pulse Rate 88 116 H 84 Respiratory Rate 18 14 14 Blood Pressure 112/66 98/59 L 104/51 L Pulse Oximetry 98 Oxygen Delivery Method Oxygen Flow Rate 0 12/26/22 10:09 12/26/22 11:29 12/26/22 11:46 Temperature 99.4 F 98.9 F Pulse Rate 111 H 121 H Respiratory Rate 14 14 Blood Pressure 97/60 90/50 L Pulse Oximetry 99 Oxygen Delivery Method Room Air Oxygen Flow Rate 12/26/22 12:15 12/26/22 12:38 12/26/22 12:44 Temperature 99.3 F Pulse Rate 118 H 163 H Respiratory Rate 20 Blood Pressure 89/40 L 105/56 L Pulse Oximetry 98 Oxygen Delivery Method Oxygen Flow Rate 0 12/26/22 13:53 12/26/22 14:07 Temperature 98.7 F 99.0 F Pulse Rate 113 H 101 H Respiratory Rate 18 147 H Blood Pressure 106/62 116/67 Pulse Oximetry 97 Oxygen Delivery Method Oxygen Flow Rate 0 Oxygen Delivery Method Room Air Oxygen Flow Rate 0 Narrative Exam Narrative: Is alert and oriented, he appears chronically ill and cachectic. He is pale He is in no distress. His head is atraumatic. The patient normal nose and mouth. Eyes are notable for symmetric pupils, EOMI and and anicteric The neck is supple, no adenopathy normal range of motion. The lungs are clear, normal effort and no wheezing is appreciated. The heart is regular, without murmur or gallop or rub. The abdomen is flat and scaphoid. There is no organomegaly. No masses are appreciated. No organomegaly. The extremities are free of edema. He has good peripheral pulses. The skin is free of rash, lesions or ecchymosis. He moves arms and legs spontaneously without difficulty. He has normal speech, and cranial nerves appear to be grossly intact. There is no facial droop. He has normal affect, and judgment. Objective Labs 12/26/22 15:05 12/26/22 06:55 Labs: Laboratory Results - last 24 hr 12/25/22 12/25/22 12/25/22 12:55 16:36 17:07 WBC RBC Hgb Hct MCV MCH MCHC RDW Plt Count Neut % (Auto) Lymph % (Auto) [place] % (Auto) Eos % (Auto) Baso % (Auto) Lymph # (Auto) [place] # (Auto) Baso # (Auto) Total Counted Seg Neutrophils % Band Neutrophils % Lymphocytes % (Manual) Monocytes % (Manual) Basophils % (Manual) Neutrophils # (Manual) RBC Morphology Anisocytosis Sodium Potassium Chloride Carbon Dioxide BUN Creatinine Estimated GFR BUN/Creatinine Ratio Glucose Calcium Magnesium Total Bilirubin AST ALT Alkaline Phosphatase Total Protein Albumin Globulin Albumin/Globulin Ratio 25-OH Vitamin D Total 65.3 Ur Bilirubin Confirm Negative Blood Type O Positive Antibody Screen Negative Crossmatch See Detail 12/26/22 12/26/22 06:55 06:55 WBC 8.8 RBC 2.00 L Hgb 5.9 L* Hct 17.4 L* MCV 86.8 MCH 29.4 MCHC 33.8 RDW 24.5 H Plt Count 456 H Neut % (Auto) Not Reportable Lymph % (Auto) Not Reportable [place] % (Auto) Not Reportable Eos % (Auto) Not Reportable Baso % (Auto) Not Reportable Lymph # (Auto) Not Reportable [place] # (Auto) Not Reportable Baso # (Auto) Not Reportable Total Counted 100 Seg Neutrophils % 58.0 Band Neutrophils % 1.0 L Lymphocytes % (Manual) 36.0 Monocytes % (Manual) 4.0 Basophils % (Manual) 1.0 Neutrophils # (Manual) 5192 RBC Morphology See below Anisocytosis 2+ H Sodium 134 L Potassium 3.8 Chloride 101 Carbon Dioxide 30 BUN 31 H Creatinine 0.60 L Estimated GFR > 60 BUN/Creatinine Ratio 51.7 H Glucose 84 Calcium 7.7 L Magnesium 2.0 Total Bilirubin 0.3 AST 25 ALT 14 Alkaline Phosphatase 58 Total Protein 4.8 L Albumin 2.3 L Globulin 2.5 Albumin/Globulin Ratio 0.9 L 25-OH Vitamin D Total Ur Bilirubin Confirm Blood Type Antibody Screen Crossmatch [facility] Medical History CAD (coronary artery disease) Closed L1 vertebral fracture Closed L4 vertebral fracture Head trauma (~1975) History of viral encephalitis HLD (hyperlipidemia) HTN (hypertension) Hx of seizure disorder Hx SBO Idiopathic gout Lumbar stenosis with neurogenic claudication Lumbar vertebral fracture Memory loss Pulmonary fibrosis Sleep apnea Spondylolisthesis at L3-L4 level Spondylolisthesis at L5-S1 level Spondylolisthesis, grade 3 Tortuous aorta Surgical History H/O knee surgery (2003) H/O shoulder surgery History of hip surgery (2007) Hx of bariatric surgery (~2007) Hx of heart artery stent (2014) Family History Father Heart attack Mother Depression Sister Depression Social History household members: none Smoking Status: Former smoker alcohol intake: former Discharge Plan Discharge Plan Patient Disposition: Xfer Acute Care Hospital Discharge Health Status Multidrug resistant organism: No MDRO Precautions: [place] Diet/Activity/Treatments Diet: Nothing by Mouth Liquid consistency: Normal/Thin Food texture: Regular Activity: As tolerated Discharge Data Primary Care Provider: Erendira March
--- NOTE | 2022-12-26 14:54 | P.CONS_ITS ---
History of Present Illness Consult details Date Patient Seen: 12/26/22 Time Patient Seen: 10:00 Chief complaint: Weakness/SOB Requesting provider: Jeffery Hanson Narrative: Patient has had progressive weight loss over several months with hyperactive bowel sounds. Increasing fatigue and abdominal discomfort (he is unsure if it is worse when he eats). H/o Melissa En Y gastric bypass many years ago when he weighed over 300lbs. Dark stools intermittently and now persistent. No bright red blood per rectum. Meds Home Medications and Allergies Home Medications Medication Instructions Recorded Confirmed Type atenolol 100 mg tablet 50 mg PO DAILY 07/18/22 12/25/22 History atorvastatin 40 mg tablet 20 mg PO BEDTIME 07/18/22 12/25/22 History amlodipine 10 mg tablet 10 mg PO DAILY 12/26/22 12/26/22 History Allergies Allergy/AdvReac Type Severity Reaction Status Date / Time No Known Drug Allergies Allergy Unverified 10/21/22 14:41 Review of Systems Review of Systems ROS: Yes All systems reviewed with the patient and are negative except as otherwise documented Exam Vital Signs (past 8 hours): - 12/26/22 08:29 12/26/22 08:40 12/26/22 08:57 Temperature 99.1 F 97.9 F 98.6 F Pulse Rate 88 116 H 84 Respiratory Rate 18 14 14 Blood Pressure 112/66 98/59 L 104/51 L Pulse Oximetry 98 Oxygen Delivery Method Oxygen Flow Rate 0 12/26/22 10:09 12/26/22 11:29 12/26/22 11:46 Temperature 99.4 F 98.9 F Pulse Rate 111 H 121 H Respiratory Rate 14 14 Blood Pressure 97/60 90/50 L Pulse Oximetry 99 Oxygen Delivery Method Room Air Oxygen Flow Rate 12/26/22 12:15 12/26/22 12:38 12/26/22 12:44 Temperature 99.3 F Pulse Rate 118 H 163 H Respiratory Rate 20 Blood Pressure 89/40 L 105/56 L Pulse Oximetry 98 Oxygen Delivery Method Oxygen Flow Rate 0 12/26/22 13:53 12/26/22 14:07 Temperature 98.7 F 99.0 F Pulse Rate 113 H 101 H Respiratory Rate 18 147 H Blood Pressure 106/62 116/67 Pulse Oximetry 97 Oxygen Delivery Method Oxygen Flow Rate 0 Oxygen Delivery Method Room Air Oxygen Flow Rate 0 Const General: cooperative, anxious and frail appearing Nutritional Appearance: underweight Orientation: alert, awake and oriented x3 HENMT Head: normal to inspection and atraumatic Eyes General: appearance normal, both eyes and all related structures Sclera: sclerae normal Neck Neck: trachea midline Resp Effort & Inspection: normal respiratory effort and able to speak in complete sentences Cardio Rate: tachycardic Rhythm: abnormal rhythm GI Palpation: soft Auscultation: high-pitched sounds and hyperactive bowel sounds Skin General: atrophy Neuro General: patient alert Speech: speech normal Psych Appearance: grossly normal Mental Status: mental status grossly normal Affect: normal affect Attitude: cooperative Judgment: judgment good Objective Labs 12/26/22 06:55 12/26/22 06:55 Labs: Laboratory Results - last 24 hr 12/25/22 12/25/22 12/25/22 12:55 16:36 17:07 WBC RBC Hgb Hct MCV MCH MCHC RDW Plt Count Neut % (Auto) Lymph % (Auto) [place] % (Auto) Eos % (Auto) Baso % (Auto) Lymph # (Auto) [place] # (Auto) Baso # (Auto) Total Counted Seg Neutrophils % Band Neutrophils % Lymphocytes % (Manual) Monocytes % (Manual) Basophils % (Manual) Neutrophils # (Manual) RBC Morphology Anisocytosis Sodium Potassium Chloride Carbon Dioxide BUN Creatinine Estimated GFR BUN/Creatinine Ratio Glucose Calcium Magnesium Total Bilirubin AST ALT Alkaline Phosphatase Total Protein Albumin Globulin Albumin/Globulin Ratio 25-OH Vitamin D Total 65.3 Ur Bilirubin Confirm Negative Blood Type O Positive Antibody Screen Negative Crossmatch See Detail 12/26/22 12/26/22 06:55 06:55 WBC 8.8 RBC 2.00 L Hgb 5.9 L* Hct 17.4 L* MCV 86.8 MCH 29.4 MCHC 33.8 RDW 24.5 H Plt Count 456 H Neut % (Auto) Not Reportable Lymph % (Auto) Not Reportable [place] % (Auto) Not Reportable Eos % (Auto) Not Reportable Baso % (Auto) Not Reportable Lymph # (Auto) Not Reportable [place] # (Auto) Not Reportable Baso # (Auto) Not Reportable Total Counted 100 Seg Neutrophils % 58.0 Band Neutrophils % 1.0 L Lymphocytes % (Manual) 36.0 Monocytes % (Manual) 4.0 Basophils % (Manual) 1.0 Neutrophils # (Manual) 5192 RBC Morphology See below Anisocytosis 2+ H Sodium 134 L Potassium 3.8 Chloride 101 Carbon Dioxide 30 BUN 31 H Creatinine 0.60 L Estimated GFR > 60 BUN/Creatinine Ratio 51.7 H Glucose 84 Calcium 7.7 L Magnesium 2.0 Total Bilirubin 0.3 AST 25 ALT 14 Alkaline Phosphatase 58 Total Protein 4.8 L Albumin 2.3 L Globulin 2.5 Albumin/Globulin Ratio 0.9 L 25-OH Vitamin D Total Ur Bilirubin Confirm Blood Type Antibody Screen Crossmatch [facility] Medical History CAD (coronary artery disease) Closed L1 vertebral fracture Closed L4 vertebral fracture Head trauma (~1975) History of viral encephalitis HLD (hyperlipidemia) HTN (hypertension) Hx of seizure disorder Hx SBO Idiopathic gout Lumbar stenosis with neurogenic claudication Lumbar vertebral fracture Memory loss Pulmonary fibrosis Sleep apnea Spondylolisthesis at L3-L4 level Spondylolisthesis at L5-S1 level Spondylolisthesis, grade 3 Tortuous aorta Surgical History H/O knee surgery (2003) H/O shoulder surgery History of hip surgery (2007) Hx of bariatric surgery (~2007) Hx of heart artery stent (2014) Family History Father Heart attack Mother Depression Sister Depression Social History household members: none Tobacco & Substance Use Smoking Status: Former smoker alcohol intake: former Assessment & Plan Assessment & Plan narrative: Presented with fatigue and dark stools with >30lb weight loss and abdominal discomfort. CT scan showing partial SBO from segment of jejunum that likely has ischemia and is thickened. 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 Over all diagnosis of acute on chronic mesenteric ischemia with compromised SMA and celiac artery on CT abd. Plan: initially thought we could observe and transfuse and have him seen vascular surgery as outpatient. Overnight with hydration he now has critical anemia, still dark stools and cardiac SVT. Transfer to facility with vascular surgery for more urgent treatment is required.
[2022-12-26 15:16] LABS: Hematocrit 27.3 % (41-53); Hemoglobin 9.2 g/dL (13.5-17.5)
--- NOTE | 2022-12-26 15:28 | PC.NURSE ---
Day shift: RR not 147 post 2nd unit of PRBC's. RR 14.
--- NOTE | 2022-12-26 16:25 | DIET.CONS2 ---
Dietary Inpatient Consultation Note Admission Date: 12/25/2022 17:49 RD consulted for pt with unintentional weight loss and low BMI for age with acute on chronic malnutrition due to several weeks of diarrhea, dark stools with critical anemia and hx RYGB. Pt currently NPO and transfering to higher level care for thoracic surgery. Diet: 12/26/22 06:47 NPO Diet Diet Modifications: NPO Type: NPO except for Meds Electronically Signed by: Mecca Rapp 12/26/22 16:25 Clinical Dietitian [address] [address]
--- NOTE | 2022-12-26 18:25 | PC.NURSE ---
Day shift: Pt left unit via ACLS at approx 1825. Pt has all personal belongings. Family in room and know plan. Pt is aware of plan as well. Transfer packet given to [facility]port team. Report by this RN given to them as well.
--- NOTE | 2022-12-26 18:39 | PC.NURSE ---
Day shift: Report given to SAMI Xiao at this time and all questions answered.
[2022-12-27 06:03] LABS: x Labcorp Estim. Avg Glu (eAG) 117 mg/dL (.); x Labcorp Hemoglobin A1c 5.7 % (4.8-5.6)
== END 2022-12-26 18:39 | disposition short-term general hospital (02) | DRG 377 ==
LOC: ED 17:49 → AC 18:37
PROVIDERS: Hospitalist; Admitting Provider Internal Medicine; Emergency Provider Emergency Medicine; PCP Internal Medicine; Referring Provider Emergency Medicine; Visit Provider Internal Medicine
DX: K92.2 Gastrointestinal hemorrhage, unspecified (principal); K55.019 Acute (reversible) ischemia of small intestine, extent unspecified; K55.029 Acute infarction of small intestine, extent unspecified; K56.600 Partial intestinal obstruction, unspecified as to cause; D62 Acute posthemorrhagic anemia; I48.91 Unspecified atrial fibrillation; Z98.84 Bariatric surgery status; Z87.891 Personal history of nicotine dependence; Z20.822 Contact with and (suspected) exposure to COVID-19
CPT/HCPCS: 36415; 36430; 74177; 80053; 81003; 82306; 83036; 83690; 83735; 85007; 85014; 85018; 85025; 85610; 86850; 86900; 86901; 93005; 99231; 99284; P9016; C9113